=== PATIENT | male | born 1980 | race Caucasian/White ===

== ENCOUNTER 2017-08-07 07:02 | Day surgery (SDC) | payer OTHER ==
[~2017-08-07 07:02] MED LIST: CEFAZOLIN 2 GM/D5W RTU 2 GM/50 ML RTUPB IV PRN
[2017-08-07] MEDS ORDERED: MIDAZOLAM 2 MG/2 ML INJ ONE ×2 (07:08→14:38)
[2017-08-07] MEDS ORDERED: FENTANYL CITRATE INJ/PF 250 MCG/5 ML AMPULE ONE (07:08)
[2017-08-07] MEDS ORDERED: FENTANYL CITRATE INJ/PF 100 MCG/2 ML AMPUL ONE ×3 (07:09→13:45)
[2017-08-07] MEDS ORDERED: LIDOCAINE 2% INJ-PF (20 MG/ML) 10 ML AMPUL ONE (07:09)
[2017-08-07] MEDS ORDERED: MORPHINE SULFATE 10 MG/ML INJ ONE (07:09)
[2017-08-07] MEDS ORDERED: DEXAMETHASONE SOD PHOS INJ 10 MG/1 ML VIAL ONE (07:09)
[2017-08-07] MEDS ORDERED: ONDANSETRON HCL INJ/PF 4 MG/2 ML SDV ONE (07:10)
[2017-08-07] MEDS ORDERED: PROPOFOL INJ 200 MG/20 ML VIAL IV ONE (07:10)
[2017-08-07] MEDS ORDERED: SUCCINYLCHOLINE CHLORIDE INJ 200 MG/10 ML VIAL ONE (07:10)
[2017-08-07] MEDS ORDERED: OXYMETAZOLINE HCL 0.05% NASAL SPRAY 15 ML BOTTLE ONE ×2 (07:47→12:28)
[2017-08-07] MEDS ORDERED: BUPIVACAINE HCL 0.5%-EPI 1:200000 INJ/PF 30 ML VIAL ONE (07:47)
[2017-08-07] MEDS ORDERED: LIDOCAINE 1%/EPINEPHRINE INJ 20 ML VIAL ONE (07:48)
[2017-08-07] MEDS ORDERED: BUPIVACAINE HCL 0.5%/EPI 1:200000 INJ 1.8 ML CARTRIDGE ONE (08:20)
[2017-08-07] MEDS ORDERED: FAMOTIDINE INJ/PF 20 MG/2 ML SDV IV ONE (08:30)
[2017-08-07] MEDS ORDERED: MINERAL OIL (STERILE) 10 ML VIAL ONE (10:52)
[2017-08-07] MEDS: HYDROMORPHONE HCL INJ/PF 2 MG/ML AMPULE ONE ×2 (12:05→12:20)
[2017-08-07] MEDS ORDERED: PHENYLEPHRINE HCL INJ/PF 10 MG/1 ML SDV ONE (12:16)
[2017-08-07] MEDS ORDERED: LABETALOL HCL INJ 20 MG/4 ML DISP.SYRIN IV ONE (14:52)
[2017-08-07] MEDS ORDERED: HYDROMORPHONE HCL INJ/PF 2 MG/ML AMPULE ONE (14:52)
--- NOTE | 2017-08-07 20:48 | SURGICARE OPERATIVE REPORT E ---
[facility] Operative Report NAME: SAUD HWANG AGE: 36Y DATE OF SURGERY: 08/07/2017 ROOM: PREOPERATIVE DIAGNOSES: 1. ACQUIRED NASAL DEFORMITIES. 2. NASOSEPTAL DEVIATION, ACQUIRED. 3. CHRONIC NASAL DYSPNEA. 4. BILATERAL INFERIOR TURBINATE HYPERTROPHY. POSTOPERATIVE DIAGNOSES: 1. ACQUIRED NASAL DEFORMITIES. 2. NASOSEPTAL DEVIATION, ACQUIRED. 3. CHRONIC NASAL DYSPNEA. 4. BILATERAL INFERIOR TURBINATE HYPERTROPHY. OPERATIONS: 1. Endonasal/external septorhinoplasty with cartilage grafts performed. 2. Bilateral inferior turbinate reduction using a submucous resection technique. SURGEON: ADARSH WU D.O. ANESTHESIA: General endotracheal tube. ANESTHESIA STAFF: SEVEN Saldana. ESTIMATED BLOOD LOSS: 100 mL. FLUIDS: 1250 mL. COMPLICATIONS: None. DRAINS: None. SPONGE COUNT: Verified. NEEDLE COUNT: Verified. MATERIALS FORWARDED SPECIMEN: None. FINDINGS: 1. Severe right nasoseptal deviation involving bone and cartilage. 2. Bilateral inferior turbinate hypertrophy, left greater than right. 3. Decreased nasal tip complex support. 4. Bilateral nasal valve collapse. 5. Right maxillary crest spur. 6. Left septal spur. INDICATIONS: This is a 36-year-old white male, active duty member, who was seen and evaluated in the [facility] office. The patient had been referred for and he complained of a long-standing history of worsening nasal dyspnea, especially over the past 2 years. The patient has desired to undergo nasal surgery to improve functional nasal airflow. He denies history of chronic or recurrent sinusitis or sinus disease. The patient reports a history of nasal trauma. There is no prior history of sinus or nasal surgery previously. The patient was also with 80% improvement with support of his nasal valve during clinical evaluation, and that was bilateral improvement. After extensive discussion was held with the patient, recommendation and plan was for endonasal/closed septorhinoplasty with bilateral turbinate reduction and cartilage grafts, bilateral. The patient voiced an understanding of the described surgical plan, agreed to proceed, and consent was obtained. PROCEDURE: The patient was taken to the main operating room and placed on the operating room table in the supine position. Appropriate monitors were placed. Using mask and IV access, general anesthesia was induced. The patient was next transorally intubated without difficulty. The patient underwent a nasal examination with injection of local anesthetic with epinephrine to establish a nasal block. Two Afrin-soaked neuro patties were placed per side. The patient was prepped and draped in the usual fashion for nasal surgery. There was a hemitransfixion incision performed with elevation of the mesoperichondrial and periosteal flaps, without difficulty. The bony cartilaginous junction was identified and divided. The most deviated portions of septal cartilage and bone were removed without difficulty. There were also maxillary crest spurs that were also removed with an osteotome and bone rongeurs without difficulty. There was also septal cartilage that was removed for use as alar noni grafts for later in the case. There was a greater than 1.5 x 1.5 cm cartilaginous L-strut that was preserved. At this point, the inferior turbinates were addressed in the following manner: The turbinate bipolar wand was used to make 2 passes on each side. The Saud scissors were used to enter the anterior aspect of each inferior turbinate, followed by use of a Hollywood to elevate tissue in the submucosal plane. Next, the turbinate microdebrider system at a setting of 1500 rpm was used to perform submucous resection on each side. Next, the Hollywood elevator was used to outfracture each inferior turbinate. The excess mucosa at the anterior aspect was trimmed and margins were reapproximated with chromic suture. At this point, the rhinoplasty portion of the case was addressed in the following manner: There were modified marginal incisions performed, followed by creation of precise pockets bilateral for the alar noni grafts. The grafts were fashioned out of the previously harvested septal cartilage. They were placed into the precise pocket and fixed in place with [id number] 5-0 Prolene suture and use of Telfa for a bolster overlying the skin and the nasal mucosa. Once complete, the nose was irrigated and thoroughly suctioned. There was cartilage that had been removed that was also placed back between the mucosal flaps and banked. At this point, all incisions were reapproximated with chromic suture. The nose was again thoroughly suctioned and there was adequate hemostasis noted. Next, 1 Love silicone splint with Bacitracin ointment was placed per side and these were fixed at the caudal aspect with 4-0 chromic suture. There was a 4-0 chromic suture that was used to perform a Wonder Bra suture. Once complete, the patient's nose was cleaned and dried. There were Mastisol and Steri-Strips placed over the nasal dorsum and around the Telfa bolsters externally. The patient was then returned to the Anesthesia staff and was allowed to emerge from general anesthesia. The patient was extubated in the main operating room and was then transported to the post anesthesia recovery unit in stable condition. There were no complications. DICTATING PHYSICIAN: ADARSH WU D.O. [id number] PHY#: [id number] ID: [id number] JOB#: [id number] ACCT: [id number] cc:ADARSH WU D.O. >
== END 2017-08-07 16:06 | disposition home or self-care (01) ==
LOC: SC 07:02
PROVIDERS: ATTEND Otolaryngology
PROC: 09UK8JZ Supplement Nasal Mucosa and Soft Tissue with Synthetic Substitute, Via Natural or Artificial Opening Endoscopic (ICD-10-PCS; principal; 2017-08-07 08:15)
PROC: 09TL8ZZ Resection of Nasal Turbinate, Via Natural or Artificial Opening Endoscopic (ICD-10-PCS; 2017-08-07 08:15)
DX: M95.0 Acquired deformity of nose (principal); J34.2 Deviated nasal septum; R06.09 Other forms of dyspnea; J34.3 Hypertrophy of nasal turbinates; F17.290 Nicotine dependence, other tobacco product, uncomplicated; G47.33 Obstructive sleep apnea (adult) (pediatric)
CPT/HCPCS: 30420; 30140; J2250; J3490 ×5; J3010 ×2; J1170; J2370; J0330; J2405; J2704; S0028; J1100; J0690; 160; J2270